=== PATIENT | male | born 1985 | race Caucasian/White ===

== ENCOUNTER 2016-10-18 12:03 | Outpatient (CLI) ==
[2015-07-28 09:22] VITALS: BMI 24.4
[2016-10-18 12:37] LABS: FLU INTERNAL QC INTERNAL QC VALID; RAPID FLU A NEGATIVE (NEGATIVE); RAPID FLU B NEGATIVE (NEGATIVE)
== END 2016-10-18 12:04 ==
LOC: LAB 12:03
PROVIDERS: ATTEND Nurse Practitioner Family
DX: J02.9 Acute pharyngitis, unspecified (principal)
CPT/HCPCS: 87804; 87880